=== PATIENT | male | born 1955 | race Hispanic/Latino ===

== ENCOUNTER 2020-11-26 11:26 | Emergency (ER) | payer BC, OTHER ==
[2020-11-26 13:37] LABS: Potassium 4.3 mmol/L (3.5-5.1)
[2020-11-26 13:46] LABS: Absolute Lymphocytes (CBC) 1.5 K/uL (0.7-4.9); Basophils % 0.5 % (0-1.3); Hematocrit 31.6 % (39.6-49.0); Lymphocytes % 62.1 % (15.3-44.8); MPV 8.9 fL (7.6-11.3); RBC Red Blood Cell Count 3.94 M/uL (4.33-5.43)
[2020-11-26] MEDS ORDERED: MORPHINE 4 MG/ML SYR ONE ×2 (13:49→17:06)
[2020-11-26] MEDS ORDERED: ONDANSETRON 4 MG/2 ML VIAL ONE (13:49)
--- NOTE | 2020-11-26 14:16 | RAD REPORT ---
EXAM DESCRIPTION: CT - Pelvis W/Cont - 11/26/2020 1:54 pm CLINICAL HISTORY: rectal pain Pain and swelling COMPARISON: No comparisons TECHNIQUE: All CT scans are performed using dose optimization technique as appropriate and may inclu de automated exposure control or mA/KV adjustment according to patient size. FINDINGS: No rectal or perirectal abnormality is detected. Both ischiorectal fossa appear normal. Prostate gland is mildly nodular prominent. A few shotty lymph nodes are seen along the pelvic sidewa lls. Small fat containing inguinal hernias, larger on the left. Small fat containing umbilical hernia . Moderate lumbosacral degenerative changes. IMPRESSION: No rectal or perirectal abnormality is seen.
[2020-11-26 14:42] LABS: Blood Morphology Comment NOT SEEN (NOT SEEN); Platelet Estimate DECR; Platelets, Giant PRESENT
--- NOTE | 2020-11-26 16:33 | ER ---
Nurse's Notes [facility] Name: Huang Salcedo Age: 65 yrs Sex: Male : 1955 Arrival Date: 11/26/2020 Time: 11:36 Bed 5 Private MD: Diagnosis: External Hemorrhoids Presentation: 11/26 11:42 Chief complaint: Patient states: Hemorrhoids x 3 weeks, pain is worse, can barely sit jl7 down, sent to ER from [facility]. Coronavirus screen: At this time, the client does not indicate any symptoms associated with coronavirus-19. Ebola Screen: No symptoms or risks identified at this time. Initial Sepsis Screen: Does the patient meet any 2 criteria? No. Patient's initial sepsis screen is negative. Does the patient have a suspected source of infection? No. Patient's initial sepsis screen is negative. Risk Assessment: Do you want to hurt yourself or someone else? Patient reports no desire to harm self or others. Onset of symptoms was November 05, 2020. 11:42 Method Of Arrival: Wheelchair jl7 11:42 Acuity: DO 3 jl7 11:49 Care prior to arrival: Toradol IM given at [facility]. jl7 Triage Assessment: 11:47 General: Appears in no apparent distress. uncomfortable, Behavior is calm, cooperative, jl7 appropriate for age. Pain: Complains of pain in buttocks Pain currently is 10 out of 10 on a pain scale. Historical: - Allergies: 11:47 No Known Allergies; jl7 - PMHx: 11:47 Hypothyroidism; Hypertensive disorder; jl7 - Immunization history:: Adult Immunizations up to date, Client reports receiving the 2nd dose of the Covid vaccine, Moderna. - Social history:: Smoking status: Patient denies any tobacco usage or history of. Screenin:50 Abuse screen: Denies threats or abuse. Nutritional screening: No deficits noted. aa5 Tuberculosis screening: No symptoms or risk factors identified. Fall Risk None identified. Assessment: 12:40 General: Appears uncomfortable, Behavior is calm, cooperative. Pain: Complains of pain aa5 in rectum Pain currently is 10 out of 10 on a pain scale. Quality of pain is described as pressure, sharp, tender, Is continuous, Aggravated by repositioning. Neuro: Level of Consciousness is awake, alert, obeys commands, Oriented to person, place, time, situation. Cardiovascular: Heart tones S1 S2 present Rhythm is regular. Respiratory: Airway is patent Respiratory effort is even, unlabored, Respiratory pattern is regular, symmetrical. GI: Abdomen is round non-distended. : No signs and/or symptoms were reported regarding the genitourinary system. EENT: No signs and/or symptoms were reported regarding the EENT system. Derm: Skin is pink, warm \T\ dry. Musculoskeletal: Range of motion: intact in all extremities. 13:17 Reassessment: Patient is alert, oriented x 3, equal unlabored respirations, skin aa5 warm/dry/pink. Awaiting CT scan . 13:20 Reassessment: Patient is alert, oriented x 3, equal unlabored respirations, skin aa5 warm/dry/pink. Pt now requesting pain medication, PA was notified. . 14:10 Reassessment: Patient is alert, oriented x 3, equal unlabored respirations, skin aa5 warm/dry/pink. Patient states feeling better. Patient states symptoms have improved. Pt back from CT scan. 16:43 Reassessment: Patient is alert, oriented x 3, equal unlabored respirations, skin aa5 warm/dry/pink. 17:10 Reassessment: Patient is alert, oriented x 3, equal unlabored respirations, skin aa5 warm/dry/pink. Vital Signs: 11:42 BP 143 / 111; Pulse 76; Resp 17; Temp 97.7; Pulse Ox 100% ; Weight 97.98 kg; Height 5 jl7 ft. 11 in. (180.34 cm); Pain 10/10; 13:17 BP 145 / 94; Pulse 69; Resp 18 S; Pulse Ox 100% on R/A; Pain 10/10; aa5 15:00 BP 137 / 85; Pulse 54; Resp 16 S; Pulse Ox 100% on R/A; aa5 16:00 BP 148 / 96; Pulse 54; Resp 18; Temp 98.0(TE); Pulse Ox 100% on R/A; aa5 11:42 Body Mass Index 30.13 (97.98 kg, 180.34 cm) 7 ED Course: 11:36 Patient arrived in ED. jl7 11:47 Triage completed. jl7 11:47 Arm band placed on right wrist. jl7 11:54 Haylie Carrasco, RN is Primary Nurse. aa5 11:58 Trav Parker PA is PHCP. [facility] 11:58 Victor Manuel Christianson MD is Attending Physician. jmm 12:40 Patient has correct armband on for positive identification. Placed in gown. Bed in low aa5 position. Call light in reach. Side rails up X2. 12:40 Pulse ox on. NIBP on. aa5 13:10 Inserted saline lock: 18 gauge in right antecubital area, using aseptic technique. tr6 Blood collected. 13:54 CT Pelvis w cont In Process Unspecified. EDMS 16:30 Manjit Camarena MD is Referral Physician. jmm 17:10 No provider procedures requiring assistance completed. IV discontinued, intact, aa5 bleeding controlled, No redness/swelling at site. Pressure dressing applied. Administered Medications: 13:25 Drug: Zofran (Ondansetron) 4 mg Route: IVP; Site: right antecubital; aa5 14:00 Follow up: Response: No adverse reaction aa5 13:27 Drug: morphine 4 mg Route: IVP; Site: right antecubital; aa5 14:00 Follow up: Response: No adverse reaction aa5 16:43 Drug: morphine 4 mg Route: IVP; Site: right antecubital; aa5 17:00 Follow up: Response: No adverse reaction aa5 Outcome: 16:32 Discharge ordered by MD. jmm 17:10 Discharged to home via wheelchair, with significant other. aa5 17:10 Condition: improved 17:10 Discharge instructions given to patient, Instructed on discharge instructions, follow up and referral plans. Demonstrated understanding of instructions, follow-up care. 17:13 Patient left the ED. iw Signatures: Dispatcher [employer] EDMS Trav Parker PA PA Landy Rothman RN RN iw Haylie Carrasco, RN RN aa5 Lisset Rodriguez RN RN jl7 Jillian Ledesma RN RN tr6
--- NOTE | 2020-11-26 16:33 | EDPHYS ---
Physician Documentation [facility] Name: Huang Salcedo Age: 65 yrs Sex: Male : 1955 Arrival Date: 11/26/2020 Time: 11:36 Bed 5 Private MD: SUPRIYA Physician Victor Manuel Christianson HPI: 11/26 17:00 This 65 yrs old Male presents to ER via Wheelchair with complaints of jmm Hemorrhoids. 17:00 Onset: The symptoms/episode began/occurred gradually, 3 week(s) ago. Modifying factors: jmm The symptoms are alleviated by cool compress, The symptoms are aggravated by bowel movement, movement, sitting position. Associate signs and symptoms: Pertinent positives: lower GI bleeding, Pertinent negatives: fever. The patient has not experienced similar symptoms in the past. Historical: - Allergies: 11:47 No Known Allergies; jl7 - PMHx: 11:47 Hypothyroidism; Hypertensive disorder; jl7 - Immunization history:: Adult Immunizations up to date, Client reports receiving the 2nd dose of the Covid vaccine, Moderna. - Social history:: Smoking status: Patient denies any tobacco usage or history of. ROS: 17:00 Constitutional: Negative for fever, chills, and weight loss, Cardiovascular: Negative jmm for chest pain, palpitations, and edema, Respiratory: Negative for shortness of breath, cough, wheezing, and pleuritic chest pain. 17:00 Abdomen/GI: Positive for rectal pain. 17:00 All other systems are negative. Exam: 17:00 Constitutional: This is a well developed, well nourished patient who is awake, alert, jmm and in no acute distress. Head/Face: atraumatic. Eyes: EOMI, no conjunctival erythema appreciated ENT: Moist Mucus Membranes Neck: Trachea midline, Supple Chest/axilla: Normal chest wall appearance and motion. Cardiovascular: Regular rate and rhythm. No edema appreciated Respiratory: Normal respirations, no respiratory distress appreciated Abdomen/GI: Non distended, soft Back: Normal ROM Skin: General appearance color normal 17:00 Skin: General appearance color normal MS/ Extremity: Moves all extremities, no obvious deformities appreciated, no edema noted to the lower extremities Neuro: Awake and alert, normal gait Psych: Behavior is normal, Mood is normal, Patient is cooperative and pleasant 17:00 Abdomen/GI: Rectal exam: hemorrhoid(s), external, with inflammation, with pain, without thrombosis. Vital Signs: 11:42 BP 143 / 111; Pulse 76; Resp 17; Temp 97.7; Pulse Ox 100% ; Weight 97.98 kg; Height 5 7 ft. 11 in. (180.34 cm); Pain 10/10; 13:17 BP 145 / 94; Pulse 69; Resp 18 S; Pulse Ox 100% on R/A; Pain 10/10; aa5 15:00 BP 137 / 85; Pulse 54; Resp 16 S; Pulse Ox 100% on R/A; aa5 16:00 BP 148 / 96; Pulse 54; Resp 18; Temp 98.0(TE); Pulse Ox 100% on R/A; aa5 11:42 Body Mass Index 30.13 (97.98 kg, 180.34 cm) 7 MDM: 12:04 Patient medically screened. [facility] 16:25 Data reviewed: vital signs. [facility] 16:29 Counseling: I had a detailed discussion with the patient and/or guardian regarding: the [facility] historical points, exam findings, and any diagnostic results supporting the discharge/admit diagnosis, lab results, radiology results, the need for outpatient follow up, to return to the emergency department if symptoms worsen or persist or if there are any questions or concerns that arise at home. 11/26 12:43 Order name: CBC with Diff; Complete Time: 14:43 [facility] 11/26 12:43 Order name: BMP; Complete Time: 13:49 [facility] 11/26 12:43 Order name: CT Pelvis w cont; Complete Time: 14:20 [facility] 11/26 14:08 Order name: CREATININE WHOLE BLOOD; Complete Time: 14:10 [facility] 11/26 14:42 Order name: Manual Differential; Complete Time: 14:43 [facility] 11/26 12:43 Order name: Saline Lock; Complete Time: 13:10 [facility] Administered Medications: 13:25 Drug: Zofran (Ondansetron) 4 mg Route: IVP; Site: right antecubital; aa5 14:00 Follow up: Response: No adverse reaction aa5 13:27 Drug: morphine 4 mg Route: IVP; Site: right antecubital; aa5 14:00 Follow up: Response: No adverse reaction aa5 16:43 Drug: morphine 4 mg Route: IVP; Site: right antecubital; aa5 17:00 Follow up: Response: No adverse reaction aa5 Disposition: 11/27 07:51 Co-signature as Attending Physician, Victor Manuel Christianson MD I agree with the assessment and avery plan of care. Disposition Summary: 11/26/20 16:32 Discharge Ordered Location: Home [facility] Condition: Stable jm Diagnosis - External Hemorrhoids [facility] Followup: [facility] - With: Manjit Caamrena MD - When: 1 - 2 days - Reason: Recheck today's complaints, Continuance of care, Re-evaluation by your physician Discharge Instructions: - Discharge Summary Sheet [facility] - Hemorrhoids [facility] - How to Take a Sitz Bath [facility] Forms: - Medication Reconciliation Form [facility] - Thank You Letter [facility] - Antibiotic Education [facility] - Prescription Opioid Use [facility] Signatures: Dispatcher [employer] Victor Manuel Rae MD MD cha Mickail, Joel, PA PA jmm Calderon, Audri, RN RN aa5 Lisset Rodriguez RN RN jl7
[2020-11-26 17:19] VITALS: TEMP 97.7; O2SAT 100
[2020-11-26 17:20] VITALS: BP 145/94
== END 2020-11-26 17:13 | disposition home or self-care (01) ==
LOC: ER 11:26
DX: K64.4 Residual hemorrhoidal skin tags (principal)
CPT/HCPCS: 85025; 80048; 36415; 82565; 72193; 96375; 96374; 99284; J2405